=== PATIENT | female | born 1995 | race Caucasian/White ===

== ENCOUNTER 2022-12-30 21:14 | Outpatient (REF) | payer OTHER, SELFPAY ==
[2023-01-03 08:12] LABS: Age Gdln ACOG Testing Note (.); IGP, rfx Aptima HPV ASCU Note (.)
== END 2022-12-30 21:15 | disposition home or self-care (01) ==
LOC: LAB 21:14
PROVIDERS: Visit Provider Obstetrics & Gynecology
DX: Z12.4 Encounter for screening for malignant neoplasm of cervix (principal)
CPT/HCPCS: G0145

== ENCOUNTER 2025-01-19 15:25 | Outpatient (REF) | payer SELFPAY ==
--- OUTSIDE RECORDS SUMMARY | 2025-01-19 11:00 | XMS_ITS | Encounter Summary ---
Author Organization [facility] Address [address] [facility] [place] [address] Care Team Providers Care Messenger Floorperson Name Role Phone BirdVenessa DO Primary Care Provider [phone] Reason for Visit * ReasonCommentsWell Women Visit Encounter Details DateTypeDepartmentCare Team (Latest Contact Info)Kuxgavxpcib52/22/2025 11:00 AM EDTProcedure Visit [facility] [address] [place] [address] Dwayne Jones DO [address] [place], [place] [id number] Cystitis (Primary Dx); Well woman exam with routine gynecological exam; Urinary body odor; Mood changes Social History Tobacco UseTypesPacks/DayYears UsedDateSmoking Tobacco: Unknown Comments:Current smoker freq uency unknown Alcohol UseStandard Drinks/WeekCommentsNever0 (1 standard drink = 0.6 oz pure alcohol)CommentsNoSex and Gender InformationValueDate RecordedSex Assigned at BirthNot on fileLegal EjrPfodfg25/01/2023 8:33 PM EDTGender Identity Not on fileSexual OrientationNot on filedocumented as of this encounter Last Filed Vital Signs Vital SignReadingTime TakenCommentsBlood Lmeuvsqa179/7001/19/2025 11:13 AM EDT Pulse--Temperature--Respiratory Rate--Oxygen Saturation--Inhaled Oxygen Concentration--Naaqkd34.5 kg (173 lb)01/19/2025 11:13 AM EDTHeight--Body Mass Index27.110 3:59 PM EDTdocumented in this encounter Progress Notes * Leo Rodriguez, HASMUKH - 01/19/2025 11:00 AM EDT Reason for Appointment: Patient ID: Ginna Slater is a 29 y.o. female who presents for Well Women Visit Patient presents today for Annual Exam. MEDICATIONS Current Outpatient Medications Medication Instructions doxycycline (VIBRAMYCIN) 100 mg, Oral, 2 times daily fluconazole (DIFLUCAN) 150 mg, Oral, Once ALLERGIES Allergies[1] PROBLEMS Active Ambulatory Problems Diagnosis Date Noted No Active Ambulatory Problems Resolved Ambulatory Problems Diagnosis Date Noted No Resolved Ambulatory Problems Past Medical History: Diagnosis Date Anxiety PCOS (polycystic ovarian syndrome) HISTORY PAST MEDICAL HISTORY SOCIAL HISTORY Medical History[2] Social History Tobacco Use Smoking status: Unknown Smokeless tobacco: Not on file Tobacco comments: Current smoker frequency unknown Substance Use Topics Alcohol use: Never Drug use: Never FAMILY HISTORY Family History[3] SURGICAL HISTORY Surgical History[4] REVIEW OF SYSTEMS Review of Systems: Review of Systems Constitutional: Negative. HENT: Negative. Eyes: Negative. Respiratory: Negative. Cardiovascular: Negative. Gastrointestinal: Negative. Genitourinary: Positive for flank pain. Report peeing blood over the last 3 days. Started cycle today. Reports history of kidneys stones last 6 mm. Odor with urination Skin: Positive for rash. Right buttock abscess; Neurological: Negative. Psychiatric/Behavioral: Negative. Hematological: Negative. Endocrine: Negative. Allergic/Immunologic: Negative. OBJECTIVE Objective: Physical Exam Constitutional: Appearance: Normal appearance. She is well-developed. Genitourinary: Vulva normal. Breasts: Breasts are soft. Right: Normal. Left: Normal. Cardiovascular: Rate and Rhythm: Normal rate and regular rhythm. Pulmonary: Effort: Pulmonary effort is normal. Breath sounds: Normal breath sounds. Abdominal: General: Bowel sounds are normal. There is no distension. Palpations: Abdomen is soft. Tenderness: There is no abdominal tenderness. There is no guarding or rebound. Musculoskeletal: General: No swelling. Normal range of motion. Right lower leg: No edema. Left lower leg: No edema. Neurological: Mental Status: She is alert and oriented to person, place, and time. Skin: General: Skin is warm and dry. Comments: Right buttock with abscess 0.5 x 0.5 cm with fluctuance area anesthestized with 1 % lidocaine and incised with number 11 blade scalpel. Copius purulent drainage underlying lipoma 1 cm X 1.5cm. Psychiatric: Mood and Affect: Mood normal. Behavior: Behavior normal. Vitals and nursing note reviewed. Exam conducted with a licensed optician present. Vitals: Estimated body mass index is 27.1 kg/m?? as calculated from the following: Height as of 23: 5' 7 . Weight as of this encounter: 173 lb. BP: 120/70 Patient's last menstrual period was 01/18/2025. Assessment/Plan ICD-10-CM 1. Cystitis N30.90 Urine culture 2. Well woman exam with routine gynecological exam Z01.419 Pap Smear 3. Urinary body odor L75.0 POCT urinalysis dipstick manually resulted Patient request refill on Wellbutrin and prescription sent to pharmacy. Patient with complaints of hematuria but just began her menstrual cycle. She reports urinary odor and right flank pain. Urine is obtained I will send for culture. She would like to discuss frequent abscess near the buttock and I discussed my concern for hidradenitis suppurativa and she is going to trial Hibiclens. She does have a lipoma that she would like removed. Plan will be to discuss surgical options and she verbalizesunderstanding. Documented by Leo Rodriguez NP on behalf of: Dwayne Jones DO [1] Allergies Allergen Reactions Amoxicillin Swelling Hydrocodone Rash Blood blisters, GI intolerance Hydrocodone-Acetaminophen Rash and Unknown Tramadol GI intolerance Lamictal [Lamotrigine] Hives Marie, Dallas witt syndrome Midazolam Hallucinations Other Reaction(s): violent Oxycodone-Acetaminophen GI intolerance Risperidone Hives and Rash [2] Past Medical History: Diagnosis Date Anxiety PCOS (polycystic ovarian syndrome) [3] Family History Problem Relation Name Age of Onset Hyperlipidemia Mother Seizures Mother Mental illness Father Cancer Maternal Grandmother Cervical cancer with mets Diabetes Maternal Grandfather Heart disease Maternal Grandfather Cancer Maternal Grandfather [4] Past Surgical History: Procedure Laterality Date ADENOIDECTOMY ANKLE SURGERY LITHOTRIPSY PAP SMEAR 12/27/2021 negative TONSILLECTOMY WISDOM TOOTH EXTRACTION wisdom teeth documented in this encounter Miscellaneous Notes * Addendum Note - Leo Rodriguez NP - 01/19/2025 11:00 AM EDTAddended by: LEO RODRIGUEZ on: 01/19/2025 02:01 PM Modules accepted: Orders documented in this encounter Plan of Treatment NameTypePriorityAssociated DiagnosesOrder SchedulePap SmearPathology and CytologyRoutine Well woman exam with routine gynecological exam Ordered: 01/19/2025Urine cultureMicrobiologyRoutine Cystitis Ordered: 01/19/2025documented as of this encounter Procedures Procedure NamePriorityDate/TimeAssociated DiagnosisCommentsPOCT URINALYSIS WUTDWINNQdpdqin93/22/2025 11:26 AM EDT Urinary body odor documented in this encounter Results * (ABNORMAL) POCT urinalysis dipstick manually resulted (01/19/2025 11:26 AM EDT)ComponentValueRef RangeTest MethodAnalysis TimePerformed AtPathologist SignatureColor, UAYellowClarity, UAClearGlucose, UANegativeNegative - 2000(110) ++++ mg/dLBilirubin, UANegativeNegative - 4(70) +++ mg/dLKetones, UA NegativeNegative - 160(16) ++++ mg/dLSpec Grav, UA1.0101 - 1.03Blood, UA PositiveNegative - 50 Nikhil/mcLpH, UA6.05 - 9Protein, UANegativeNegative - 2000(20) ++++ mg/dLUrobilinogen, UA1.00.2 - 12 mg/dLLeukocytes, UAPositive Negative - 500+++ Quintin/mcLNitrite, UANegativeNegative - PositiveSpecimen (Source)Anatomical Location / LateralityCollection Method / VolumeCollection TimeReceived AcxqLdemv62/22/2025 11:26 AM EDT Narrative Authorizing ProviderResult TypeResult StatusLeo Rodriguez NPPOINT OF CARE TEST ENTER/EDIT ORDERABLESFinal Result documented in this encounter Visit Diagnoses Diagnosis Cystitis- Primary Unspecified cystitis Well woman exam with routine gynecological exam Routine gynecological examination Urinary body odor Other specified disorder of sweat glands Mood changes Unspecified episodic mood disorder documented in this encounter Care Teams Team MemberRelationshipSpecialtyStart DateEnd Date Venessa Bird DO [address] [place] [address] PCP - GeneralFamily Vnvxacso99/2/23documented as of this encounter
--- OUTSIDE RECORDS SUMMARY | 2025-01-19 15:42 | XMS_ITS | Encounter Summary ---
Author Organization [facility] Address [address] [facility] [address] Care Team Providers Care Slide Developer Name Role Phone Venessa Bird DO Primary Care Provider [phone] Encounter Details DateTypeDepartmentCare Team (Latest Contact Info)Jdnxfzharlh23/22/2025amboo flowsheet [facility] [address] [place] [address] Dwayne Jones DO [address] [place], [facility] Social History Tobacco UseTypesPacks/DayYears UsedDateSmoking Tobacco: Unknown Comments:Current smoker freq uency unknown Alcohol UseStandard Drinks/WeekCommentsNever0 (1 standard drink = 0.6 oz pure alcohol)CommentsNoSex and Gender InformationValueDate RecordedSex Assigned at BirthNot on fileLegal OpkQrkklb64/01/2023 8:33 PM EDTGender Identity Not on fileSexual OrientationNot on filedocumented as of this encounter Plan of Treatment Not on file documented as of this encounter Visit Diagnoses Not on filedocumented in this encounter Care Teams Team MemberRelationshipSpecialtyStart DateEnd Date Venessa Bird DO [address] [place] [id number] PCP - GeneralFamily Xljslysf16/2/23documented as of this encounter
--- OUTSIDE RECORDS SUMMARY | 2025-01-19 15:42 | XMS_ITS | Clinical Summary ---
Author Organization [facility] [employer] [facility] Address [id number] [address] [place] [address] Care Team Providers Care Therapeutic Dietitian Name Role Phone Bird Venessa Reena DEAN Primary Care Provider [phone] Allergies Active AllergyReactionsCriticalityNoted DateCommentsAmoxicillinHives,Swelling High05/28/2018 Other Reaction(s): Lamictal, rash OvnvlkidundEodvHaxy67/02/2023 Blood blisters, GI intolerance Hydrocodone-AcetaminophenItching,Nausea And Vomiting,Rash,IiziapmzMdrr20/28/2019 LamotrigineHives,McnfLbc9905/28/2018 Marie, Dallas witt syndrome IlygttsntDxta38/15/2024 Other Reaction(s): Swelling of throat GwidbubdbGjlmaanibwfshv32/28/2019 Other Reaction(s): Mental Status Change, violent Other Reaction(s): violent Oxycodone-AcetaminophenGI Disturbance,Vaschqpn58/28/2019Risperidone Analogues Hives,LqpfFwo5905/28/2018TramadolGI Disturbance,Nausea And Vomiting,VomitingHigh 05/28/2018 Medications MedicationSigDispense QuantityRefillsLast FilledStart DateEnd DateStatus lidocaine (XYLOCAINE) 2 % jelly Indications:Hemorrhoids, unspecified hemorrhoid typeApply 1 Application topically as needed for pain. 30 mL 4Active Active Problems No known active problems Family History Medical HistoryRelationNameCommentsDrug abuseFatherHeart attackFatherKidney failureFatherKlinefelter's syndromeFatherArthritisMotherFibromyalgiaMother GlaucomaMotherOsteoporosisMotherRelationNameStatusCommentsFatherDeceasedMother Alive Social History Tobacco UseTypesPacks/DayYears UsedDateSmoking Tobacco: Every DayCigarettes Smokeless Tobacco: Never Tobacco Cessation:Ready to Q uit: Not Asked; Counseling Given: Not Answered Alcohol UseStandard Drinks/WeekCommentsNot Currently0 (1 standard drink = 0.6 oz pure alcohol)ChildcareAnswerDate PpoyhyaoAatxfvdrbYuwvpks36/03/2021mployment AnswerDate LnrimjdnTivdaztawmPadfrel10/03/2021Hunger ScreeningAnswerDate RecordedWithin the past 12 months we worried whether our food would run out before we got money to buy more.Often True04/14/2023Within the past 12 months the food we bought just didn't last and we didn't have money to get more.Often True04/14/2023urpose - LifeAnswerDate RecordedPurpose and direction in life Audmcin6905/03/2020CommentsUnknownSex and Gender InformationValueDate RecordedSex Assigned at BirthNot on fileLegal XnqKdiknl17/03/2021 3:47 PM EST Gender IdentityNot on fileSexual OrientationNot on file Last Filed Vital Signs Vital SignReadingTime TakenCommentsBlood Ivenovvg838/78004/14/2023 2:19 PM EST Ejgwp209204/14/2023 2:19 PM ESTTemperature--Respiratory Rate--Oxygen Saturation-- Inhaled Oxygen Concentration--Kxzwmx53.6 kg (179 lb 12.8 oz)04/14/2023 2:19 PM FKFKpsycf206.2 cm (5' 7 )04/14/2023 2:19 PM ESTBody Mass Index28.16004/14/2023 2:19 PM EST Plan of Treatment Health MaintenanceDue DateLast DoneCommentsDepression Njefputqj04/24/2008 DTaP,Tdap and Td Vaccines (1 - Tdap)10/21/2014Pap Smear10/21/2016Adult BMI Qcikycmol53/15/53828904/14/2023Tobacco Urkxhnvnq21Influenza Zvfganj4311/29/2024 Medical Devices Not on file Insurance Care Teams Team MemberRelationshipSpecialtyStart DateEnd Date Venessa Bird, PCP - GeneralFamily Gsobqcku71/12/23
--- OUTSIDE RECORDS SUMMARY | 2025-01-19 15:42 | XMS_ITS | Clinical Summary ---
Author Organization [facility] Address [address] [facility] [place] [address] Care Team Providers Care Joint Filler Name Role Phone Bird, Amy Primary Care Provider [phone] Allergies Active AllergyReactionsCriticalityNoted DateCommentsAmoxicillinSwellingHigh 12/30/20222097CpizrfqqujzKepvNopa10/02/2023 Blood blisters, GI intolerance Hydrocodone-AcetaminophenRash,WvtrpkpNaoz35/02/6626OvpdnglrnyiHrxmz52/02/2023 Marie, Dallas witt syndrome EenxpymxdBcxkbigndfvkca33/28/2019 Other Reaction(s): violent Oxycodone-AcetaminophenGI kiextygstia36/28/2019RisperidoneHives,RashLow 05/28/2018TramadolGI juyixqitdnrSfue34/28/2019 Medications MedicationSigDispense QuantityRefillsLast FilledStart DateEnd DateStatus fluconazole (Diflucan) 150 MG tablet Take 150 mg by mouth 1 (one) time02/23/2023ctive doxycycline (Vibramycin) 100 MG capsule Take 100 mg by mouth in the morning and 100 mg before bedtime.02/26/2023ctive buPROPion XL (Wellbutrin XL) 150 MG 24 hr tablet Indications:DepressionTake 1 tablet (150 mg) by mouth Daily Do not crush, chew, or split. 30 tablet 5Active Encounters DateTypeDepartmentCare CjtsDpfcfsgwzpk79/22/2025 11:00 AM EDTProcedure Visit [facility] [address] [place] [address] [place] [phone] Dwayne Jones DO Cystitis (Primary Dx); Well woman exam with routine gynecological exam; Urinary body odor; Mood uzhoooa1101/19/2025amboo flowsheet [facility] [address] [place] [address] Dwayne Jones DO from Last 3 Months Family History Medical HistoryRelationNameCommentsMental illnessFatherCancerMaternal GrandfatherDiabetesMaternal GrandfatherHeart diseaseMaternal GrandfatherCancer Maternal GrandmotherCervical cancer with metsHyperlipidemiaMotherSeizuresMother RelationNameStatusCommentsFatherMaternal GrandfatherMaternal GrandmotherMother Alive Social History Tobacco UseTypesPacks/DayYears UsedDateSmoking Tobacco: Unknown Tobacco Cessation:Counseling Given: Not Answered Comments:Current smoker frequency unknown Alcohol UseStandard Drinks/WeekCommentsNever0 (1 standard drink = 0.6 oz pure alcohol)CommentsNoSex and Gender InformationValueDate RecordedSex Assigned at BirthNot on fileLegal DngJnnlns15/01/2023 8:33 PM EDTGender Identity Not on fileSexual OrientationNot on file Last Filed Vital Signs Vital SignReadingTime TakenCommentsBlood Gzzoqvxg488/7001/19/2025 11:13 AM EDT Pulse--Temperature--Respiratory Rate--Oxygen Saturation--Inhaled Oxygen Concentration--Xrosdf40.5 kg (173 lb)01/19/2025 11:13 AM YFJGejrrn589.2 cm (5' 7 )01/08/2023 3:59 PM EDTBody Mass Index27. 3:59 PM EDT Plan of Treatment Not on file Procedures Procedure NamePriorityDate/TimeAssociated DiagnosisCommentsPOCT URINALYSIS DWWINBRLFstxzyo37/22/2025 11:26 AM EDT Urinary body odor from Last 3 Months Results * (ABNORMAL) POCT urinalysis dipstick manually resulted (01/19/2025 11:26 AM EDT)ComponentValueRef RangeTest MethodAnalysis TimePerformed AtPathologist SignatureColor, UAYellowClarity, UAClearGlucose, UANegativeNegative - 1999(110) ++++ mg/dLBilirubin, UANegativeNegative - 4(70) +++ mg/dLKetones, UA NegativeNegative - 160(16) ++++ mg/dLSpec Grav, UA1.0101 - 1.03Blood, UA PositiveNegative - 50 Nikhil/mcLpH, UA6.05 - 9Protein, UANegativeNegative - 1999(20) ++++ mg/dLUrobilinogen, UA1.00.2 - 12 mg/dLLeukocytes, UAPositive Negative - 500+++ Quintin/mcLNitrite, UANegativeNegative - PositiveSpecimen (Source)Anatomical Location / LateralityCollection Method / VolumeCollection TimeReceived NxipRycnb50/22/2025 11:26 AM EDT Narrative Authorizing ProviderResult TypeResult StatusKristina Michael NPPOINT OF CARE TEST ENTER/EDIT ORDERABLESFinal Result from Last 3 Months Insurance Care Teams Team MemberRelationshipSpecialtyStart DateEnd Date Venessa Bird DO [address] [place] [phone] PCP - GeneralFamily Uqhdyxfb44/2/23
--- OUTSIDE RECORDS SUMMARY | 2025-01-19 15:42 | XMS_ITS | Clinical Summary ---
Author Organization [facility] Address [address] [facility] [place] [address] Care Team Providers Care Metal Melter Name Role Phone Unavailable Primary Care Provider Unavailabl e Source Comments The following information is NOT included in Care Everywhere downloads:Psychiatric notes, ECG results, Cardiac Rehab notes, Pulmonary Function notes, data from SmartForms (includes but not limited toPregnancy data,audiograms, eye exams, pre-surgical evaluation notes, well-child exam data).[facility] Social History Tobacco UseTypesPacks/DayYears UsedDateSmoking Tobacco: Never Assessed CommentsUnknownSex and Gender InformationValueDate RecordedSex Assigned at Not on fileLegal EagKgnapl23/04/2012 1:06 PM ESTGender IdentityNot on fileSexual OrientationNot on file Plan of Treatment Health MaintenanceDue DateLast DoneCommentsHIV Test10/21/2010Hepatitis C Yrbdqsaa85/24/2014Tdap Dpehzmo2010/21/2013Hepatitis A (HAV) Vaccine (optional start 19+ years)10/21/2014Hepatitis B (HBV) Vaccine (1 of 3 - 19+ 3-dose series) 10/21/2014Tetanus (Td or Tdap) Mzmcmzh4510/21/2014Pap Smear10/21/2016HPV Vaccine (optional start 27-45 years)10/21/2022OVID-19 Vaccine ( - 2023- season) 2024Influenza Vaccine (#1)2024Shingles (RZV) Vaccine (1 of 2) 10/21/2045MammographyDiscontinuedPneumococcal Vaccine(s)Aged OutNo longer eligible based on patient's age to complete this topic Insurance
--- OUTSIDE RECORDS SUMMARY | 2025-01-19 15:42 | XMS_ITS | Clinical Summary ---
Author Organization [facility] Address [address] [place] [address] Care Team Providers Care Producer Assistant Name Role Phone Unavailable Primary Care Provider Unavailabl e Social History Tobacco UseTypesPacks/DayYears UsedDateSmoking Tobacco: Never Assessed CommentsUnknownSex and Gender InformationValueDate RecordedSex Assigned at Not on fileLegal UdwFuhgbb27/12/2013 8:57 PM ESTGender IdentityNot on fileSexual OrientationNot on file Plan of Treatment Not on file
--- OUTSIDE RECORDS SUMMARY | 2025-01-19 15:42 | XMS_ITS | Clinical Summary ---
Author Organization [facility] Address [address] [place] [address] Care Team Providers Care Strip Polisher Name Role Phone Unavailable Primary Care Provider Unavailabl e Allergies Active AllergyReactionsCriticalityNoted UvneIetxcrgoAgxihosoponNzmnr23/28/2019 DaphmvnmusoMppg40/28/2019Hydrocodone-SzlgolgvpegybFpguxqei27/28/2019 Oxycodone-PfrrmhijmuaxbXlswcnrm24/28/2019Risperidone RwzlxbkweAxfy58/28/2019 Tramadol AucOftnzcfp06/28/2019Midazolam HclMental Status Zpzkmo9405/28/2018 Medications MedicationSigDispense QuantityRefillsLast FilledStart DateEnd DateStatus L. rhamnosus GG/inulin (CULTURELLE PROBIOTICS ORAL) Take by mouth.Active NAPROXEN ORAL Take by mouth.Active Omeprazole 40 mg capsule Indications:Gastroesophageal reflux disease, esophagitis presence not specified Take 1 capsule by mouth once daily. 30 capsule Active polyethylene glycol 3350 (MIRALAX) 17 gram/dose powder Indications:Constipation, unspecified constipation typeTake 17 g by mouth once daily. 1 Bottle 05/29/2018Active Active Problems ProblemNoted DateDiagnosed DateNausea with ofvewtlz83/28/2019 Social History Tobacco UseTypesPacks/DayYears UsedDateSmoking Tobacco: Every DayCigarettes Smokeless Tobacco: NeverAlcohol UseStandard Drinks/WeekCommentsYes0 (1 standard drink = 0.6 oz pure alcohol)rarely once every 6 monthsArea Deprivation Index AnswerDate RecordedNational Score (1-100), lower number is lower riskNot on file 03/09/2020State Score (1-10), lower number is lower riskNot on file03/09/2020 Data from: https://www.neighborhoodatlas.[facility]/. Last address used for calculationNot on file03/09/2020CommentsUnknownSex and Gender InformationValueDate RecordedSex Assigned at BirthNot on fileLegal SexFemale 05/14/2018 1:53 PM ESTGender IdentityNot on fileSexual OrientationNot on file Last Filed Vital Signs Vital SignReadingTime TakenCommentsBlood Pressure--Pulse--Temperature-- Respiratory Rate--Oxygen Saturation--Inhaled Oxygen Concentration--Fwrxjh91.6 kg (180 lb)05/28/2018 3:31 PM CKRXrfbkk683.2 cm (5' 7 )05/28/2018 3:31 PM ESTBody Mass Index28.19005/28/2018 3:31 PM EST Plan of Treatment Health MaintenanceDue DateLast DoneCommentsAnxiety Fgcfjjdum12/24/2014Depression Uvfqhzbmu46/24/2014HIV Dljjujfft80/24/2014Hepatitis C Pufgrjuxk81/24/2014 DTaP,Tdap,Td Vaccine (1 - Tdap)10/21/2014Hepatitis B Vaccine (1 of 3 - 19+ 3- dose series)10/21/2014Cervical Cancer Cgmglpspf06/24/2017HPV Vaccine (1 - 3-dose SCDM series)3Covid-19 Vaccine (1 - 2024- season)2024Influenza Vaccine (#1)2024 Insurance MemberSubscriberPlan / Payer (Effective 2022-Present)Name:Ginna Slater Relation to Subscriber:SelfName:Ginna Slater Payer ID:[id number] (NAIC) Group ID:[id number] Type:Medicaid Address: [facility] [address] [place] [id number]
--- OUTSIDE RECORDS SUMMARY | 2025-01-19 15:42 | XMS_ITS | Patient Health Record ---
Author Organization [facility] Address [address] [place] [address] Care Team Providers Care Crate Icer Name Role Phone Ebenezer Wasserman Primary Care Provider Allergies Allergen (clinical drug ingredient) Drug/Non Drug Allergy documented on EMR Reaction Allergy Type Onset Date Status amoxicillin Amoxicillin Unknown Drug Allergy Active Reason For Referral No Information Plan Of Treatment No Information Insurance Providers Payer Name Payer Address Payer Phone Subscriber Number Group Number Insured Name Patient Relationship to Insured Coverage Start Date Coverage End Date [employer] [place] [address] [place] [address] [id number] SINAN MIRANDA Self - patient is the insured 3 Wrap [facility] CareSourcePO [address] [place] [id number] MIRANDAaishaf - patient is the tkuhjgz5505/01/2022zDENTAL DQ [employer] 04/30/22[address] [place] [phone] [id number], CHRISTIANASelf - patient is the swqkhdw1708/29/2021 04/30/2022zDental MEDICAID [facility] after [employer] 04/30/22[address] [place] [id number], CHRISTIANAaishaf - patient is the [id number]-termed 04/30/22[address] [place] [id number], CHRISTIANASelf - patient is the insured zMEDICAID [facility] after [employer] 04/30/22[address] [place] [id number], CHRISTIANASelf - patient is the [id number] [employer] DQ [address] [place] [id number], CHRISTIANASelf - patient is the bjetrae1105/01/2022ental Wrap [facility] CareSourcePO [address] [place] [id number], CHRISTIANASelf - patient is the wegupvh6405/01/2022
[2025-01-25 16:09] LABS: Age Gdln ACOG Testing Note (.); IGP, rfx Aptima HPV ASCU Note (.)
== END 2025-01-19 15:26 | disposition home or self-care (01) ==
LOC: LAB 15:25
PROVIDERS: Visit Provider Nurse Practitioner Family
DX: Z01.419 Encounter for gynecological examination (general) (routine) without abnormal findings (principal)
CPT/HCPCS: 88175